=== PATIENT | female | born 1960 | race Caucasian/White ===

== ENCOUNTER 2016-11-27 14:33 | Emergency (ER) | payer SELFPAY ==
[~2016-11-27] VITALS: Ht 167.6 cm; Wt 125.0 kg
[2016-11-27 14:35] VITALS: BP 175/90; PULSE 70; RESP 20; TEMP 98.8; O2SAT 97
--- NOTE | 2016-11-27 16:34 | PD ---
HPI Chief Complaint: Pain: Acute or Chronic Time Seen by Provider: 16:29 Travel History International Travel<30 days: No Contact w/Intl Traveler<30days: No Traveled to known affect area: No History of Present Illness HPI 56-year-old female presents to emergency department complaining of right foot pain 6 weeks. Reports history of plantar fasciitis. Says she just moved down here and has been on her feet a lot causing exacerbation of pain to the right plantar heel area of the foot. Denies injury. Denies paresthesias, loss of sensation, decreased range motion, decreased strength to the affected extremity. Has been ambulatory on the affected extremity. Has been taking tramadol for symptom management. Allergies to morphine, restless leg patch, Toradol. Has no other medical complaints. No other modifying factors or associated signs and symptoms. Allergies-Medications (Allergen,Severity, Reaction): Coded Allergies: Morphine (Verified Allergy, Severe, RASH, 11/27/16) Toradol (Verified Allergy, Severe, BACK ACHE, 11/27/16) Uncoded Allergies: RESTLESS LEG PATCH (Allergy, Severe, VOMITING, 11/27/16) Review of Systems Except as stated in HPI: all other systems reviewed are Neg Physical Exam Narrative GENERAL: Well-nourished, well-developed female patient, in no acute distress SKIN: Warm and dry. HEAD: Atraumatic. Normocephalic. EYES: Pupils equal and round. No scleral icterus. No injection or drainage. ENT: Mucosa pink and moist. Airway patent. NECK: Trachea midline. CARDIOVASCULAR: Regular rate. RESPIRATORY: No accessory muscle use. GASTROINTESTINAL: Obese. MUSCULOSKELETAL: Right foot without erythema, edema; with tenderness on palpation to the bottom of the heel. Right lower x-ray supplemented with 2+ pedal pulses and sensory intact without erythema or edema. No obvious deformities. No clubbing. No cyanosis. No edema. NEUROLOGICAL: Awake and alert. Oriented 3. No obvious cranial nerve deficits. Motor grossly within normal limits. Normal speech. PSYCHIATRIC: Appropriate mood and affect; insight and judgment normal. Data Data Last Documented VS Vital Signs Date Time Temp Pulse Resp B/P Pulse Ox O2 Delivery O2 Flow Rate FiO2 11/27/16 14:35 98.8 70 20 175/90 97 Room Air MDM Medical Screen Exam Complete: Yes Emergency Medical Condition: No Differential Diagnosis Plantar fasciitis, calcaneal spur, medical clearance Narrative Course 56-year-old female with history of plantar fasciitis and right foot pain that is exacerbated 6 weeks and worsened over the past few days. Denies injury. Right lower extremity is supple and nontender 2+ pedal pulse and sensory intact and without erythema or edema. The right foot is without erythema, edema. I do not suspect fracture and feel that imaging is not necessary at this time. Instructed patient to follow up with podiatry. Vital signs are stable and the patient is stable for outpatient follow-up and treatment. The patient has no urgent or emergent medical complaints. There is no emergent or urgent medical need at this time. I instructed the patient to follow up with their primary care provider. A medical screening exam was performed: At the time of evaluation the presenting medical condition was determined not to be of an emergent nature. The patient was given the option of receiving additional care, but declined. Patient was given options for additional community resources from which to obtain care. The Patient Has Been advised to seek medical attention for their presenting complaint. The patient has been advised to return to the ER at any time if an emergent condition develops. Primary Impression: Encounter for medical screening examination Condition: Stable Laura Smith [facility] Nov 27, 2016 16:34
== END 2016-11-27 17:01 | disposition left against medical advice (07) ==
LOC: NEPK 14:33
DX: M72.2 Plantar fascial fibromatosis (principal)
CPT/HCPCS: 99281